=== PATIENT | female | born 1995 | race Caucasian/White ===

== ENCOUNTER 2018-12-18 14:09 | Emergency (ER) | payer BC ==
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
[2018-12-18 17:03] VITALS: BP 114/72; PULSE 124; O2SAT 100
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
== END 2018-12-18 17:04 | disposition home or self-care (01) ==
LOC: ED 14:09
DX: Z04.71 Encounter for examination and observation following alleged adult physical abuse (principal); Y08.89XA Assault by other specified means, initial encounter; Z33.1 Pregnant state, incidental
CPT/HCPCS: 76805; 76810; 99283